=== PATIENT | male | born 1945 | race Asian ===

== ENCOUNTER → 2017-09-28 | Outpatient (CLI) | payer MEDICARE, OTHER ==
[~2017-09-28] MED LIST: ASPI81 PO; ATOR40TA28 PO; FINA5TAB41 PO; METF500T4 PO; METO50 PO; NIFE30TA5 PO; OMEG1CAP12 PO; TAMS0.4C32 PO; TELM40 PO
== END | disposition home or self-care (01) ==
LOC: RADPV 09:10
PROVIDERS: ATTEND Internal Medicine
DX: I70.0 Atherosclerosis of aorta (principal)
CPT/HCPCS: 71046